=== PATIENT | female | born 1975 | race American Indian/Alaskan Native ===

== ENCOUNTER 2018-01-02 12:42 | Emergency (ER) | payer SELFPAY ==
[2018-01-02 12:54] VITALS: BP 137/81; PULSE 90; RESP 18; TEMP 98.3
--- NOTE | 2018-01-02 14:20 | RAD ---
HISTORY: SOB COMPARISON: No prior. TECHNIQUE: Chest PA and lateral FINDINGS: LUNGS: No active pulmonary disease. PLEURA: No significant pleural effusion identified. No pneumothorax apparent. CARDIOVASCULAR: Normal. OSSEOUS STRUCTURES: No significant abnormalities. VISUALIZED UPPER ABDOMEN: Normal. OTHER FINDINGS: None. IMPRESSION: No active disease.
[2018-01-02] MEDS ORDERED: Oxycodone/Acetaminophen 5/325 mg Tab PO STA (14:42)
[2018-01-02] MEDS ORDERED: Oxycodone/Acetaminophen 5/325 mg Tab ONE (14:54)
--- NOTE | 2018-01-02 15:42 | ED PDOC ---
HPI: Back <Gordo Bui III - Last Filed: 01/02/18 16:28> Chief Complaint (Provider): Back pain History Per: Patient History/Exam Limitations: no limitations Onset/Duration Of Symptoms: Days Current Symptoms Are (Timing): Still Present Quality Of Discomfort: "Pain" Additional History Per: Patient Additional Complaint(s): 42yo female presents to ED with complaints of left lower back pain, radiating to her leg. Patient states she has a history of sciatica and had similar pain in the past but states she has not had an exacerbation "for a long time." Patient states what usually works for her is steroids, flexeril and percocets. Patient states the symptoms started after she saw a racoon outside while throwing the trash and she ran into her house and crashed against a garbage can. She denies any fall during that time. Otherwise: (-) paresthesias, (-) weakness, (-) acute bowel or bladder dysfunction, (-) fever. <Dilia Denson PA-C - Last Filed: 01/02/18 23:52> Time Seen by Provider: 01/02/18 12:59 Chief Complaint (Nursing): Back Pain Past Medical History Vital Signs: Last Vital Signs Temp 98.3 F 01/02/18 12:51 Pulse 90 01/02/18 12:51 Resp 18 01/02/18 15:54 BP 137/81 01/02/18 12:51 Pulse Ox 98 01/02/18 16:26 <Gordo Bui III - Last Filed: 01/02/18 16:28> Reviewed: Historical Data, Nursing Documentation, Vital Signs Vital Signs: Last Vital Signs Temp 98.3 F 01/02/18 12:51 Pulse 90 01/02/18 12:51 Resp 18 01/02/18 12:51 BP 137/81 01/02/18 12:51 Pulse Ox 98 01/02/18 12:51 - Medical History PMH: Back Problems - Surgical History Surgical History: No Surg Hx - Family History Family History: States: No Known Family Hx <Dilia Denson PA-C - Last Filed: 01/02/18 23:52> - Home Medications Home Medications: Ambulatory Orders Medication Instructions Recorded Cyclobenzaprine [Cyclobenzaprine 10 mg PO TID PRN #15 tab 01/02/18 HCl] Lidoderm Patch Removal 1 unit .ROUTE DAILY PRN #5 ea 01/02/18 predniSONE [predniSONE Tab] 40 mg PO DAILY #8 tab 01/02/18 - Allergies Allergies/Adverse Reactions: Allergies Allergy/AdvReac Type Severity Reaction Status Date / Time NSAIDS (Non-Steroidal Allergy URTICARIA Verified 01/02/18 12:51 Anti-Inflamma Review of Systems ROS Statement: Except As Marked, All Systems Reviewed And Found Negative Constitutional: Negative for: Fever Genitourinary Female: Negative for: Incontinence Musculoskeletal: Positive for: Back Pain (left lower back radiating to left leg) Neurological: Negative for: Weakness, Numbness <Dilia Denson PA-C - Last Filed: 01/02/18 23:52> Physical Exam - Reviewed Nursing Documentation Reviewed: Yes Vital Signs Reviewed: Yes - Physical Exam Comments: GENERAL APPEARANCE: Patient is awake, alert, oriented x 3, in no acute distress. SKIN: Warm, dry; (-) cyanosis. EYES: (-) conjunctival pallor. ENMT: Mucous membranes moist. NECK: (-) tenderness, (-) stiffness, (-) lymphadenopathy. CHEST AND RESPIRATORY: (-) rales, (-) rhonchi, (-) wheezes; breath sounds equal bilaterally. HEART AND CARDIOVASCULAR: (-) irregularity; (-) murmur, (-) gallop. ABDOMEN AND GI: Soft; (-) tenderness; (-) palpable mass. BACK: (-) paralumbar tenderness, (-) spasm, (-) direct bony tenderness, (-) deformity. Straight leg raising (+) left leg at 20 degrees. EXTREMITIES: (-) deformity. Distal pulses good bilaterally. NEURO AND PSYCH: Mental status as above. Intact sensation bilaterally; normal strength in extension of the knees, plantar and dorsiflexion of the toes. DTRs symmetric. <Dilia Denson PA-C - Last Filed: 01/02/18 23:52> - ECG O2 Sat by Pulse Oximetry: 98 (RA) Pulse Ox Interpretation: Normal <Dilia Denson PA-C - Last Filed: 01/02/18 23:52> Medical Decision Making Medical Decision Making: attending note- patient became argumentative when told percocet was not prescribed. She stated she's had percocet filled within last 2 years but in [facility] database under this name and none listed in [place] or [place]. Patient could not provide photo ID with name and , only name. I told her efficacy of opioids for acute back pain is limited at best, and conservative therapies are more effective. She was given a referral to the clinic for followup, sciatica exercises were explained and indications for return to ER were explained. <Gordo Bui III - Last Filed: 01/02/18 16:28> Medical Decision Making: Impression: Sciatica pain Plan: -- Chest X-Ray -- Flexeril 10 mg PO -- Ultram 50 mg PO Time: 1442 Patient reports continued pain despite giving her flexeril. Patient refused ultram stating she has history of gastric bypass surgery and this medication irritates her stomach. Patient is requesting percocet as she states that is the only medication which provides her relief. Patient given alternatives to narcotic pain reliever and she refuses those. 1 tab Percocet PO and Prednisone 60 mg PO, ordered for pain relief. Time: 1600 Upon re-evaluation, patient reports she is feeling much better. Patient has steady gait, is ambulatory in ER and is in no acute distress. Patient is still requesting perocets for pain relief, and was once again provided with alternatives like lidoderm patch for pain relief. Patient states she cannot afford the medication, so a Rx discount card was given - she is still requesting percocets. Patient is requesting to speak with a physician. Patient was evaluated by Dr. Bui, who explained to her STOP protocol regarding narcotics given in the ER. Dr. Bui is agreeable with current treatment plan and disposition. Based on history, exam and diagnostic results plan will be for patient to be discharged home with instructions to follow up with PCP or the clinic in 2-3 days. Advised to take medication as prescribed. Return to the emergency room at any time for any new or worsening symptoms. Patient states she fully agrees with and understands discharge instructions. States that she agrees with the plan and disposition. Verbalized and repeated discharge instructions and plan. I have given the patient opportunity to ask any additional questions. Scribe Attestation: Documented by Mary Beth Saxena acting as a scribe for MIKAELA Marquez Provider Attestation: All medical record entries made by the Scribe were at my direction and personally dictated by me. I have reviewed the chart and agree that the record accurately reflects my personal performance of the history, physical exam, medical decision making, and the department course for this patient. I have also personally directed, reviewed, and agree with the discharge instructions and disposition. <Dilia Denson PA-C - Last Filed: 01/02/18 23:52> Disposition <Gordo Bui III - Last Filed: 01/02/18 16:28> - Patient ED Disposition Is Patient to be Admitted: No Counseled Patient/Family Regarding: Diagnosis, Need For Followup, Rx Given - Disposition Disposition: Routine/Home Disposition Time: 15:40 <Dilia Denson PA-C - Last Filed: 01/02/18 23:52> - Clinical Impression Clinical Impression: Sciatica - Disposition Referrals: [facility] [Outside] Condition: STABLE Additional Instructions: Follow up with the clinic in 2 days without fail. Take medications as prescribed. Return to the ER at any time for any new or worsening symptoms. Prescriptions: Cyclobenzaprine [Cyclobenzaprine HCl] 10 mg PO TID PRN #15 tab PRN Reason: Muscle Spasm Lidoderm Patch Removal 1 unit .ROUTE DAILY PRN #5 ea PRN Reason: Pain, Moderate (4-7) predniSONE [predniSONE Tab] 40 mg PO DAILY #8 tab Instructions: Sciatica Forms: [facility] ([place]), [facility] ED School/Work Excuse
[2018-01-02 16:17] VITALS: O2SAT 98
== END 2018-01-02 17:32 | disposition home or self-care (01) ==
LOC: H.ER 12:42
DX: M54.32 Sciatica, left side (principal)